=== PATIENT | female | born 1980 | race Caucasian/White ===

== ENCOUNTER 2016-09-23 11:59 | Emergency (ER) | payer OTHER ==
[2016-09-23 12:06] VITALS: TEMP 98.3; BMI 39.0
[2016-09-23] MEDS ORDERED: ACETAMINOPHEN 500 MG TABLET (FP) PO ONE (12:28)
--- NOTE | 2016-09-23 12:28 | PDOC ---
[id number] 96 09/23/16 12:03 09/23/16 12:03 09/23/16 12:03 09/23/16 12:03 09/23/16 12:03 - Physical Exam Comments: 09/23/16 12:28 Pt seen by the Advanced Practice Provider under my direct supervision Pt interviewed and examined Ancillary studies reviewed I agree with plan as outlined by the Advanced Practice Provider ED Treatment Course - LABORATORY CBC & Chemistry Diagram: 09/23/16 14:39 09/23/16 14:39 *DC/Admit/Observation/Transfer Diagnosis at time of Disposition: Vaginal bleeding - Discharge Dispostion Disposition: HOME Condition at time of disposition: Good - Patient Instructions Printed Discharge Instructions: DI for Vaginal Bleeding Additional Instructions: Please follow-up with your [employer] MANAGER and take Tylenol for discomfort. You also may apply heating pad to the affected area.
[2016-09-23] MEDS ORDERED: ACETAMINOPHEN 325 MG TABLET (FP) ONE (13:07)
--- NOTE | 2016-09-23 14:23 | PDOC ---
History of Present Illness - General Chief Complaint: Vaginal Bleeding Stated Complaint: VAGINAL BLEEDING, POSSIBLE Time Seen by Provider: 09/23/16 12:24 History Source: Patient Exam Limitations: No Limitations - History of Present Illness Travel History: No Initial Comments: 09/23/16 13:18 35-year-old female presents with mid suprapubic cramping associated vaginal bleeding and passage of a large clots this morning. Patient states took a home twice last week which was positive but has not followed up with an OB/ AVIATION ENGINEER nor has she had an ultrasound to confirm status. Patient denies nausea, vomiting, fever, chills, dysuria, or diarrhea. Timing/Duration: reports: constant Quality: reports: moderate, cramping Abdominal Pain Onset Location: reports: suprapubic Pain Radiation: reports: no radiation Activities at Onset: reports: none Aggravating Factors: improves with: None Alleviating Factors: improves with: None Past History - Past Medical History Allergies/Adverse Reactions: Allergies Allergy/AdvReac Type Severity Reaction Status Date / Time No Known Allergies Allergy Verified 09/23/16 12:07 Home Medications: Ambulatory Orders NK [No Known Home Medication] 09/23/16 Other medical history: PRECLAMPSIA - Surgical History Cholecystectomy: Yes (1) - Reproductive History Is Patient Now?: Yes (#): 3 Para: 1 Spontaneous : 1 - Psycho/Social/Smoking Cessation Hx Suicidal Ideation: No Smoking Status: No Smoking History: Never smoked Number of Cigarettes Smoked Daily: 0 Information on smoking cessation initiated: No Hx Alcohol Use: Yes (OCCASIONALLY) Drug/Substance Use Hx: No Patient Lives Alone: No Lives with/in: spouse/SO Review of Systems - Review of Systems Able to Perform ROS?: Yes Constitutional: No: Symptoms Reported HEENTM: No: Symptoms Reported Respiratory: No: Symptoms reported Cardiac (ROS): No: Symptoms Reported ABD/GI: Yes: Abdominal cramping : Yes: Discharge (vaginal bleeding) Musculoskeletal: No: Symptoms Reported Integumentary: No: Symptoms Reported Neurological: No: Symptoms reported Endocrine: No: Symptoms Reported Hematologic/Lymphatic: No: Symptoms Reported *Physical Exam - Vital Signs Last Vital Signs Temp Pulse Resp BP Pulse Ox 98.3 F 77 16 141/85 96 09/23/16 12:03 09/23/16 12:03 09/23/16 12:03 09/23/16 12:03 09/23/16 12:03 - Physical Exam General Appearance: Yes: Nourished, Appropriately Dressed. No: Apparent Distress HEENT: positive: EOMI, GEOVANI. negative: Pale Conjunctivae Neck: positive: Supple Respiratory/Chest: positive: Lungs Clear, Normal Breath Sounds. negative: Respiratory Distress, Accessory Muscle Use Cardiovascular: positive: Regular Rhythm, Regular Rate. negative: Murmur Female Pelvic Exam: positive: cervical os closed, vaginal bleeding (scant dark red. No clots). negative: adnexal tenderness Gastrointestinal/Abdominal: positive: Soft, Tenderness (mild mid suprapubic) Musculoskeletal: negative: CVA Tenderness Extremity: positive: Normal Capillary Refill. negative: Pedal Edema Integumentary: positive: Normal Color, Warm, Moist Neurologic: positive: Motor Strength 5/5 (ambulatory) ED Treatment Course - LABORATORY CBC & Chemistry Diagram: 09/23/16 14:39 09/23/16 14:39 - ADDITIONAL ORDERS Additional order review: Laboratory Results 09/23/16 09/23/16 09/23/16 12:30 12:30 12:30 INR Cancelled Sodium Cancelled Potassium Cancelled Chloride Cancelled Carbon Dioxide Cancelled Anion Gap Cancelled BUN Cancelled Creatinine Cancelled Creat Clearance w eGFR Cancelled Random Glucose Cancelled Calcium Cancelled Total Bilirubin Cancelled AST Cancelled ALT Cancelled Alkaline Phosphatase Cancelled Total Protein Cancelled Albumin Cancelled Beta HCG, Quant Cancelled Blood Type Cancelled Antibody Screen Cancelled Spec Expiration Date Cancelled 09/23/16 12:30 RBC Cancelled MCV Cancelled MCHC Cancelled RDW Cancelled MPV Cancelled Neutrophils % Cancelled Lymphocytes % Cancelled Monocytes % Cancelled Eosinophils % Cancelled Basophils % Cancelled - Medications Given in the ED: ED Medications Discontinued Medications Generic Name Dose Route Start Last Admin Trade Name Freq PRN Reason Stop Dose Admin Acetaminophen 975 mg 09/23/16 12:28 09/23/16 13:10 Tylenol - PO 09/23/16 12:29 975 mg ONCE ONE Administration Medical Decision Making - Medical Decision Making 09/23/16 13:25 Patient complains of vaginal bleeding and suprapubic pain. Patient states positive home last week and did not seek medical care as of yet. Patient on exam had mild mid suprapubic tenderness with scant dark red blood. Patient ordered for labs prior to my arrival. Patient vital signs stable. Patient also ordered for Tylenol and urinalysis. Laboratory Tests 09/23/16 09/23/16 09/23/16 14:39 14:39 15:12 WBC 8.5 Hgb 14.1 Hct 42.9 Neutrophils % 63.2 Sodium 141 Potassium 4.0 Chloride 103 Carbon Dioxide 27 Anion Gap 11 BUN 7 Creatinine 0.6 AST 19 ALT 30 Beta HCG, Quant < 1.0 Urine Protein 1+ H Urine Blood 3+ H Ur Leukocyte Esterase Trace H Blood Type 09/23/16 15:12 WBC Hgb Hct Neutrophils % Sodium Potassium Chloride Carbon Dioxide Anion Gap BUN Creatinine AST ALT Beta HCG, Quant Urine Protein Urine Blood Ur Leukocyte Esterase Blood Type O POSITIVE Patient to be discharged home to follow up with her AVIATION ENGINEER. Needs repeat VS *DC/Admit/Observation/Transfer Diagnosis at time of Disposition: Vaginal bleeding - Discharge Dispostion Disposition: HOME Condition at time of disposition: Good - Patient Instructions Printed Discharge Instructions: DI for Vaginal Bleeding Additional Instructions: Please follow-up with your AVIATION ENGINEER and take Tylenol for discomfort. You also may apply heating pad to the affected area.
[2016-09-23 16:01] LABS: URINE APPEARANCE SLCLOUDY; URINE BILIRUBIN NEGATIVE (NEGATIVE); URINE BLOOD 3+ (NEGATIVE); URINE COLOR RED; URINE GLUCOSE (UA) NEGATIVE (NEGATIVE); URINE KETONE NEGATIVE (NEGATIVE); URINE NITRITE NEGATIVE (NEGATIVE); URINE UROBILINOGEN NEGATIVE E.U./dl (0.2-1.0)
[2016-09-23 16:02] LABS: URINE LEUK ESTERASE TRACE (NEGATIVE); URINE PROTEIN 1+ (NEGATIVE)
[2016-09-23 16:03] LABS: BASOPHIL 0.5 % (0-2.0); EOSINOPHIL 0.7 % (0-4.5); MCH 28.3 pg (25.7-33.7); MCHC 32.9 g/dl (32.0-36.0); MEAN CELL VOLUME 86.2 fl (80-96); MEAN PLT VOLUME 9.5 fl (7.5-11.1); NEUTROPHILS 63.2 % (42.8-82.8); PLATELET COUNT 183 K/MM3 (134-434); RDW 15.8 % (11.6-15.6); WHITE BLOOD COUNT 8.5 K/mm3 (4.0-10.0)
[2016-09-23 16:05] LABS: ALBUMIN 3.7 g/dl (3.4-5.0); ANION GAP 11 (8-16); BILIRUBIN,TOTAL 0.4 mg/dL (0.2-1.0); CALCIUM 8.7 mg/dL (8.5-10.1); CO2 27 mmol/L (21-32); COCKROFT - GAULT 187.4165; CREATININE 0.6 mg/dL (0.55-1.02); GLUCOSE,RANDOM 78 mg/dL (74-106); SGOT/AST 19 U/L (15-37); SGPT/ALT 30 U/L (12-78); TOT PROT 7.5 g/dl (6.4-8.2)
[2016-09-23 16:08] LABS: ALK PHOS 91 U/L (45-117)
[2016-09-23 16:59] VITALS: BP 133/75; PULSE 69
[2016-09-23 20:03] LABS: URINE RBC 2453 /hpf (0-3); URINE WBC 118 /hpf (3-5)
== END 2016-09-23 16:59 | disposition home or self-care (01) ==
LOC: JER 11:59
DX: N93.8 Other specified abnormal uterine and vaginal bleeding (principal)
CPT/HCPCS: 36415; 80053; 81003; 81015; 84702; 85025; 86850; 86900; 86901; 87086; 99283-25

== ENCOUNTER 2017-06-19 09:41 | Emergency (ER) | payer OTHER ==
[2017-06-19 09:45] VITALS: BMI 42.3
--- NOTE | 2017-06-19 10:07 | PDOC ---
History of Present Illness - General Chief Complaint: Vaginal Bleeding Stated Complaint: COUGH, VAGINAL BLEEDING Time Seen by Provider: 06/19/17 09:53 History Source: Patient Exam Limitations: No Limitations - History of Present Illness Travel History: No Initial Comments: 06/19/17 10:02 36 yr female no PMHX states LMP 05/05/17 had positive home test 3 days ago yesterday began vaginal spotting and last night bleeding became heavier like a menstrual period with lower abd cramping comes and goes. Pt is A2. Pt denies fever,, neg back pain neg nvd. neg dizzyness. Pt does not have a education instructor that she follows with. Timing/Duration: reports: getting worse Quality: reports: mild, cramping Abdominal Pain Onset Location: reports: suprapubic Pain Radiation: reports: no radiation Activities at Onset: reports: none Past History - Past Medical History Allergies/Adverse Reactions: Allergies Allergy/AdvReac Type Severity Reaction Status Date / Time No Known Allergies Allergy Verified 06/19/17 09:45 Home Medications: Ambulatory Orders NK [No Known Home Medication] 09/23/16 COPD: No Other medical history: denies any STD history - Surgical History Cholecystectomy: No - Reproductive History LMP Normal: No Is Patient Now?: Yes (#): 4 Para: 1 Cervical CA: No Dysfunctional Uterine Bleeding: No Ectopic : No Endometrial CA: No Endometriosis: No Ovarian CA: No PID: No Polycystic Ovaries: No Therapeutic (s) & number: No Spontaneous : 2 Uterine Fibroids: No Oophorectomy: No - Immunization History Tetanus Status: Less than 5 years - Suicide/Smoking/Psychosocial Hx Smoking Status: No Smoking History: Current some day smoker Number of Cigarettes Smoked Daily: 2 Information on smoking cessation initiated: No Hx Alcohol Use: No Drug/Substance Use Hx: No Abd/GI Specific PMHX - Complaint Specific PMHX Colitis: No Diverticulitis: No Gall Bladder Disease: No GERD: No Hepatitis: No Irritable Bowel Synd (IBS): No Pancreatitis: No GI Ulcer Disease: No Review of Systems - Review of Systems Able to Perform ROS?: Yes Is the patient limited Estonian proficient: No Constitutional: No: Symptoms Reported HEENTM: No: Symptoms Reported Respiratory: No: Symptoms reported Cardiac (ROS): No: Symptoms Reported ABD/GI: Yes: Symptoms Reported, See HPI : No: Symptoms Reported *Physical Exam - Vital Signs Last Vital Signs Temp Pulse Resp BP Pulse Ox 99.2 F 71 18 119/60 100 06/19/17 09:42 06/19/17 09:42 06/19/17 09:42 06/19/17 09:42 06/19/17 09:42 - Physical Exam General Appearance: Yes: Nourished, Appropriately Dressed HEENT: positive: EOMI, GEOVANI, Normal ENT Inspection, Normal Voice Neck: positive: Supple Respiratory/Chest: positive: Lungs Clear, Normal Breath Sounds Cardiovascular: positive: Regular Rhythm, Regular Rate Female Pelvic Exam: positive: normal external exam, vaginal bleeding (moderate BRB with clots). negative: CMT, discharge Gastrointestinal/Abdominal: positive: Normal Bowel Sounds, Soft. 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 I have discussed how pt needs to follow with the driver utility worker for a further workup. pt understands and all questions have been asked and answered 06/19/17 13:11 blood type is O positive not requiring rhogam *DC/Admit/Observation/Transfer Diagnosis at time of Disposition: Threatened in early - Discharge Dispostion Condition at time of disposition: Fair - Referrals Referrals: Vannessa Zaragoza MD [Staff Physician] - - Patient Instructions Printed Discharge Instructions: DI for Miscarriage Additional Instructions: please follow with the driver utility worker next week call Tuesday to make appointment take tylenol 650mg every 4-6hrs for pain as needed avoid any sexual activity , nothing in the vagina until cleared by the driver utility worker return to ER for any increased pain or bleeding that you can not control at home - Post Discharge Activity
[2017-06-19 10:38] LABS: BASO % 0.4 % (0-2.0); HEMATOCRIT 39.5 % (32.4-45.2); HEMOGLOBIN 12.8 GM/dL (10.7-15.3); LYMPH % 24.1 % (8-40); MCH 27.9 pg (25.7-33.7); MCHC 32.3 g/dl (32.0-36.0); MEAN CELL VOLUME 86.5 fl (80-96); MEAN PLT VOLUME 8.9 fl (7.5-11.1); MONO % 5.9 % (3.8-10.2); NEUT % 68.6 % (42.8-82.8); PLATELET COUNT 203 K/MM3 (134-434); RBC 4.57 M/mm3 (3.60-5.2); RDW 14.4 % (11.6-15.6); WHITE BLOOD COUNT 8.6 K/mm3 (4.0-10.0)
[2017-06-19 11:00] LABS: INR 1.06 (0.82-1.09)
[2017-06-19 11:16] LABS: URINE APPEARANCE SLCLOUDY; URINE BILIRUBIN NEGATIVE (NEGATIVE); URINE BLOOD 3+ (NEGATIVE); URINE COLOR YELLOW; URINE GLUCOSE (UA) NEGATIVE (NEGATIVE); URINE KETONE NEGATIVE (NEGATIVE); URINE LEUK ESTERASE TRACE (NEGATIVE); URINE NITRITE NEGATIVE (NEGATIVE); URINE UROBILINOGEN NEGATIVE mg/dL (0.2-1.0)
[2017-06-19 11:17] LABS: URINE PROTEIN 1+ (NEGATIVE)
[2017-06-19 13:49] VITALS: BP 115/72; PULSE 89; TEMP 98.2
== END 2017-06-19 13:49 | disposition home or self-care (01) ==
LOC: JER 09:41
DX: O26.891 Other specified pregnancy related conditions, first trimester (principal); O20.0 Threatened abortion; Z3A.00 Weeks of gestation of pregnancy not specified
CPT/HCPCS: 36415; 76817-TC; 81003; 81015; 84702; 84703; 85025; 85610; 86850; 86900; 86901; 87491; 87591; 99285-25